=== PATIENT | male | born 1990 | race Caucasian/White ===

== ENCOUNTER 2023-04-30 08:21 | Emergency (ER) | payer OTHER ==
[~2023-04-30] VITALS: Ht 162.6 cm; Wt 78.2 kg
[2023-04-30] MEDS ORDERED: IBUPROFEN 800 MG TAB PO ONE (10:20)
[2023-04-30 10:58] VITALS: BP 110/73; TEMP 97.2; O2SAT 99
== END 2023-04-30 11:29 | disposition home or self-care (01) ==
LOC: M ED 08:21
DX: M54.50 Low back pain, unspecified (principal)

== ENCOUNTER → 2024-05-16 | Outpatient (REF) | LOC: M PLAIMG 09:43 | PROVIDERS: ATTEND Internal Medicine | DX: R52 Pain, unspecified (principal) ==